=== PATIENT | male | born 1980 | race Caucasian/White ===

== ENCOUNTER → 2018-07-09 | Outpatient (CLI) | payer OTHER | LOC: M.CT 09:48 | DX: K40.90 Unilateral inguinal hernia, without obstruction or gangrene, not specified as recurrent (principal); R91.8 Other nonspecific abnormal finding of lung field; I10 Essential (primary) hypertension; M51.36 Other intervertebral disc degeneration, lumbar region ==

== ENCOUNTER → 2018-08-12 | Day surgery (SDC) | payer OTHER ==
[~2018-08-12] MED LIST: HYDROCHLOROTHIA25 M2 PO; SYNTHROID25 MC1 PO; ZESTRIL40 MG PO
--- NOTE | ~2018-08-12 | OP ---
[address] [address] OPERATIVE REPORT Name: FIDEL ROBERTSON Room: [facility]#: [id number] Admission: 08/12/18 Attend Phys: Fidel Ramires DO Discharge: Date of : 82 Report #: [id number] THIS REPORT FOR: //name// CC: Fidel Mccray DATE OF SERVICE: 08/12/2018 REFERRING PHYSICIAN: HARSHAL Kaminski. PREOPERATIVE DIAGNOSIS: Left inguinal hernia. POSTOPERATIVE DIAGNOSIS: Left indirect inguinal hernia. PROCEDURE: Da Alexandro robotic-assisted laparoscopic left inguinal hernia repair with mesh. SURGEON: Fidel Ramires DO. MARKETING EXECUTIVE: Dr. Edison Palm. ANESTHESIA: General endotracheal. ESTIMATED BLOOD LOSS: Less than 20 mL. COMPLICATIONS: None. DESCRIPTION OF PROCEDURE: After obtaining proper consents and discussing risks and complications with the patient, he was taken to the operating room and laid on the supine position, administered general anesthesia. He was then prepped and draped in the usual sterile fashion. A timeout was performed. We confirmed the appropriate patient and procedure. Preoperative antibiotics had been given. SCDs were in place. We then made a small supraumbilical skin incision with a #11 scalpel blade. This was carried down through the skin into the subcutaneous tissue using electrocautery for hemostasis. Once the fascia was encountered, it was incised along the midline, grasped and elevated with Manoj clamps. The peritoneum was then bluntly opened using a hemostat. We then placed two kxyflm-li-rekax sutures with 0 Vicryl to secure the da Alexandro camera port, which was then inserted. Once the camera port was inserted and insufflation was begun, full visual inspection of the anterior abdominal organs was performed. This revealed a fairly small left inguinal hernia, which appeared to be an indirect inguinal hernia. There was no right inguinal hernias. No other gross abnormalities were identified. We then placed a 12 mm right subcostal trocar and an 8.5 mm da Alexandro trocar on the left side in the subcostal region. We then docked the da Alexandro robot. Once the robot was docked, [place] [address] OPERATIVE REPORT Name: FIDEL ROBERTSON Room: [facility]#: [id number] Admission: 08/12/18 Attend Phys: Fidel Ramires DO Discharge: Date of : 82 Report #: [id number] monopolar scissors in the right upper quadrant and a bipolar fenestrated grasper in the left upper quadrant. I then broke scrub and went on console. Once on console, I identified the ASIS on the left side, I opened the peritoneum from the median umbilical ligament laterally to the ASIS. I then dissected the preperitoneal space until we were able to visualize the pubic ramus medially. I then continued the dissection laterally along the spermatic cord and reduced a small left indirect inguinal hernia. Once this was done, I continued the dissection all the way laterally to the ASIS. We then identified a moderately-sized cord lipoma, which was reduced back from the indirect space and then I excised the entire cord lipoma using electrocautery. Once this was done, I then placed a large Bard 3DMax mesh, which was then inserted and then sutured in place to Prince's ligament and then also medial and lateral to the inferior epigastric vessels using a 2-0 Vicryl suture. We then closed the peritoneal flap using a running 2-0 V-Loc absorbable suture. Once this was complete, I then rescrubbed and went back to the patient's bedside where the da Alexandro instruments were removed and the robot was undocked. We then used a PMI closure device to close the right and left upper quadrant port sites after they were removed. The umbilical fascia was then closed after removing the cord lipoma through the umbilical port within an Endopouch and the umbilical fascia was then closed using the 2 previously placed 0 Vicryl sutures plus an additional 0 Vicryl suture. Skin incisions were all injected with 0.5% Marcaine without epinephrine and then closed using 4-0 Monocryl subcuticular stitches. Mastisol, Steri-Strips, sterile OpSite and pressure dressings were placed. The patient tolerated the procedure well and was awakened in the operating room and transported to recovery room in stable condition. By: [id number] Ramires DO /arnol
[2018-08-12 08:26] LABS: HEMATOCRIT 40.3 % (42.0-52.0); HEMOGLOBIN 14.2 gm/dL (14.0-18.0); MCH 30.3 pg (26.0-34.0); MCHC 35.2 g/dL (28.0-37.0); MCV 86.2 fL (80.0-100.0); MPV 8.4 fl. (7.2-11.1); RBC 4.67 mil/uL (4.50-6.00); RDW-CV 12.7 % (10.5-14.5); WBC 5.2 thou/uL (4.0-11.0)
[2018-08-12 08:33] LABS: CALCIUM 8.5 mg/dL (8.5-10.1); CREATININE 0.9 mg/dL (0.6-1.3); POTASSIUM 3.8 mmol/L (3.5-5.1)
[2018-08-12 08:38] LABS: TOTAL BILIRUBIN 0.3 mg/dL (<0.1-1.0); TOTAL PROTEIN 7.2 g/dL (6.4-8.2)
--- NOTE | 2018-08-12 15:44 | EKG ---
[place] [address] ELECTROCARDIOGRAM REPORT Name: FIDEL ROBERTSON Room: [facility]#: [id number] Admission: 08/12/18 Attend Phys: Fidel Ramires DO Discharge: Date of : 82 Report #: [id number] THIS REPORT FOR: //name// [facility] Test Date: 2018-08-12 Test Time: 08:29:46 Pat Name: FIDEL ROBERTSON Department: Room: Gender: M Neurophysiologist: ALONDRA : 1980 Requested By: Fidel Ramires Order Number: [id number] Reading MD: John Baumann Measurements Intervals [place]ball Rate: 59 P: 48 WI: 178 QRS: 26 QRSD: 96 T: 30 QT: 391 QTc: 388 Interpretive Statements Sinus rhythm No previous ECG available for comparison Electronically Signed On 08-12-2018 15:44:08 CDT by John Baumann [email or web address] <ELECTRONICALLY SIGNED> By: John Baumann MD, [facility] 08/12/18 1544 0829 0829 Jonh Baumann MD, FACC /EPI
--- NOTE | 2018-08-14 17:06 | PATH ---
[address] [address] PATHOLOGY RPT PROCEDURE Name: FIDEL MARTIN Room: [facility]#: [id number] Admission: 08/12/18 Date of : 82 Discharge: Report #: [id number] Path Case #: [id number] [facility] Accession Number: [id number] . 01 Material submitted: . hernia - CORD LIPOMA . 01 Clinical history: . Left inguinal hernia, cord lipoma . 02 Diagnosis: Cord lipoma: - Benign fat consistent with "cord lipoma". (JENIFFER/db; 08/14/2018) LBQ/08/14/2018 . 02 Electronically signed: . Kevin Stallworth MD, Pathologist NPI- [id number] . 01 Gross description: . The specimen is received in formalin, labeled "Fidel Martin, cord lipoma". Received is a partially encapsulated segment of bright yellow lobulated tissue measuring 7.6 x 3.9 x 1.5 cm in greatest dimensions. Sectioning reveals bright yellow, lobulated cut surfaces with no grossly distinct nodules or lesions. The specimen is submitted representatively in cassette A1. (CAA; 08/13/2018) QAC/QAC . 02 Pathologist provided ICD-10: D17.9 . 02 CPT . 227801 Specimen Comment: A courtesy copy of this report has been sent to Specimen Comment: [phone], . Specimen Comment: Report sent to / DR JAMES Performed at: [address], [place], [place] [id number] MD Clifton Prajapati MD Phone: [phone] Performed at: 02 [facility] [address], [place], [place] [id number] MD Kevin Stallworth MD Phone: [phone]
== END | disposition home or self-care (01) ==
LOC: M.SUR 06:15
PROVIDERS: Surgery
DX: K40.90 Unilateral inguinal hernia, without obstruction or gangrene, not specified as recurrent (principal); D17.6 Benign lipomatous neoplasm of spermatic cord; Z88.8 Allergy status to other drugs, medicaments and biological substances; Z79.899 Other long term (current) drug therapy; Z98.890 Other specified postprocedural states